=== PATIENT | female | born 1980 | race Caucasian/White ===

== ENCOUNTER 2017-01-08 08:35 | Inpatient (IN) | payer OTHER ==
[2017-01-08] MEDS ORDERED: MISOPROSTOL 200 MCG TAB ONE (09:06)
[2017-01-08] MEDS ORDERED: LIDOCAINE 1% 30 ML SDV ONE (09:06)
[2017-01-08] MEDS ORDERED: LR 1,000 ML IV PRN (09:09)
[2017-01-08] MEDS ORDERED: OXYTOCIN/RINGERS LACTATE 1,000 ML IV PRN (09:09)
[2017-01-08] MEDS ORDERED: TERBUTALINE SULFATE 1 MG/ML VIAL IV PRN (09:09)
[2017-01-08 09:19] LABS: % IMMATURE GRANULYOCYTES 0.4 % (0.0-1.1); ABSOLUTE IMMATURE GRANULOCYTES 0.07 10^3/uL (0.00-0.10); ADD DIFF? NO; ADD MORPH? NO; ADD SCAN? NO; ATYPICAL LYMPHOCYTE FLAG 0 (0-99); FRAGMENT RBC FLAG 0 (0-99); HEMATOCRIT 43.7 % (38.0-47.0); LEFT SHIFT FLG 0 (0-99); LIPEMIA HEMOLYSIS FLAG 90 (0-99); MEAN CELL HEMOGLOBIN 30.4 pg (27.9-34.1); MEAN CELL HEMOGLOBIN CONCENTR. 34.3 g/dL (32.4-36.7); MEAN CELL VOLUME 88.6 fL (81.5-99.8); MEAN PLATELET VOLUME 10.3 fL (8.7-11.7); PLATELET CLUMPS FLAG 10 (0-99); PLATELET COUNT 224 10^3/uL (150-400); RED BLOOD CELL COUNT 4.93 10^6/uL (4.18-5.33); RED CELL DISTRIBUTION WIDTH 13.2 % (11.5-15.2)
[2017-01-08] MEDS: IBUPROFEN 600 MG TAB PO PRN ×3 (11:01→23:44)
[2017-01-08] MEDS ORDERED: SIMETHICONE 80 MG TAB CHEW PO PRN (13:44)
[2017-01-08] MEDS ORDERED: HYDROCODONE/APAP 5/325 TAB PO PRN (13:44)
[2017-01-08] MEDS ORDERED: HYDROCORTISONE 0.5% CREAM TP PRN (13:44)
[2017-01-08] MEDS ORDERED: ACETAMINOPHEN 325 MG TAB PO PRN (13:44)
--- NOTE | 2017-01-08 13:49 | OBPROC ---
- Labor and Delivery Onset of Contractions Date: 01/07/17 Onset of Contractions Time: 21:30 Onset of Contractions Type: Spontaneous Rupture of Membranes Date: 01/08/17 Rupture of Membranes Time: 09:46 Rupture of Membranes Type: Artificial Amniotic Fluid Color: Clear Dilation Complete Time: 10:00 Placenta Delivery Date: 01/08/17 Placenta Delivery Time: 10:37 Episiotomy/Laceration: 1st Degree EBL: 100 Complications: None - Medications Labor Augmentation/Induction Meds Used: None - Info A Delivery Date: 01/08/17 Delivery Time: 10:32 Sex of : Male Weight (gm): 4558 kg Score (1 Min): 8 Score (5 Min): 9
[2017-01-08] MEDS: DOCUSATE SODIUM 100 MG CAP PO PRN (17:53)
[2017-01-08] MEDS ORDERED: LIDOCAINE 2% JELLY 5 ML TUBE ONE (18:42)
[2017-01-08] MEDS ORDERED: LIDOCAINE 2% JELLY 5 ML TUBE TP ONE (19:00)
[2017-01-09] MEDS: IBUPROFEN 600 MG TAB PO PRN ×3 (06:07→19:54)
[2017-01-10] MEDS: IBUPROFEN 600 MG TAB PO PRN ×4 (02:01→22:17)
[2017-01-10] MEDS: DOCUSATE SODIUM 100 MG CAP PO PRN ×2 (08:17→22:17)
--- NOTE | 2017-01-10 11:59 | SOAPPROG ---
SOAP Progress Note Assessment/Plan: Assessment: well pain well managed vs wnl ff@u scant rubra lochia Plan:discharge to [facility] early am anna green [address] dumas 01/10/17 11:55 Subjective: Feeling good other than not being able to void. well. Pain well managed Objective: Vital Signs Temp Pulse Resp BP Pulse Ox 37.1 C 71 18 109/75 94 01/10/17 08:00 01/10/17 08:00 01/10/17 08:00 01/10/17 08:00 01/10/17 08:00 Laboratory Results 01/08/17 09:00 01/09/17 01/10/17 01/11/17 05:59 05:59 05:59 Intake Total 1400 Output Total 100 3500 600 Balance -100 -2100 -600 - Time Spent With Patient Time Spent With Patient: 15 minutes - Pending Discharge Pending Discharge Within 24 Hours: Yes Pending Discharge Date: 01/11/17 Pending Discharge Time: 11:00 Physical Exam - Physical Exam General Appearance: WD/WN, alert Abdomen: other (ff@u) Pelvic Exam: vaginal bleeding (scant rubra lochia) Skin: normal color, warm/dry Extremities: normal range of motion, non-tender, normal inspection Neuro/Psych: no motor/sensory deficits, alert, normal mood/affect, oriented x 3 , other (headache will try tylenol and heat rest food and caffiene to assist . pt ok with poc) ICD10 Worksheet Patient Problems: Problems Problem Status Onset Active labor at term Acute Normal spontaneous vaginal delivery Acute hemorrhage Acute Retained placenta Acute
[2017-01-10 20:53] VITALS: RESP 16
[2017-01-11] MEDS: IBUPROFEN 600 MG TAB PO PRN ×2 (04:21→10:11)
[2017-01-11 09:26] VITALS: BP 118/74; PULSE 81; TEMP 98.9; O2SAT 94
--- NOTE | 2017-01-11 10:58 | OBPROG ---
OBG Progress Note Assessment/Plan: Assessment: 36 y/o PPD #3 s/p with macrosomic baby and urinary retention. Plan: After 24 hours of bladder rest she has a small post-void residual and will d/c home without the catheter. She will come to the office this week and check post void residual. Recommend Q 2 hour voids while awake even if she doesn't have the urge to void. 01/11/17 10:46 Subjective: Pt is doing better this am. She had her green removed this am and was able to void 600 cc with a post-void residual of 168 cc. She is comfortable and not having pain currently. Nursing is going well and baby is good. We will send patient home today and have a follow-up @ [facility] this week. Objective: 01/08/17 09:00 Patient ABO/Rh A POSITIVE 01/08/17 09:00 Temp Pulse Resp BP Pulse Ox 37.2 C 81 16 118/74 94 01/11/17 08:20 01/11/17 08:20 01/11/17 08:20 01/11/17 08:20 01/11/17 08:20 Uterine Position/Fundal Height: Umbilicus -2 Uterine Tone: Firm - Physical Exam General Appearance: WD/WN, alert, no apparent distress Neck: non-tender, full range of motion, supple Respiratory: chest non-tender, lungs clear, normal breath sounds Cardiac/Chest: regular rate, rhythm Abdomen: normal bowel sounds Extremities: swelling (no), Justin's sign (neg) ICD10 Worksheet Patient Problems: Problems Problem Status Onset Active labor at term Acute Normal spontaneous vaginal delivery Acute hemorrhage Acute Retained placenta Acute
== END 2017-01-11 11:55 | disposition home or self-care (01) | DRG 775 ==
LOC: FLD 08:35 → OBSVTOIN 09:10 → FOB 13:24
PROVIDERS: ADMIT Obstetrics & Gynecology; ATTEND Obstetrics & Gynecology
PROC: 10907ZC Drainage of Amniotic Fluid, Therapeutic from Products of Conception, Via Natural or Artificial Opening (ICD-10-PCS; principal; 2017-01-08)
PROC: 10E0XZZ Delivery of Products of Conception, External Approach (ICD-10-PCS; principal; 2017-01-08)
DX: O36.63X0 Maternal care for excessive fetal growth, third trimester, not applicable or unspecified (principal); O70.0 First degree perineal laceration during delivery; Z37.0 Single live birth; Z3A.39 39 weeks gestation of pregnancy; O09.523 Supervision of elderly multigravida, third trimester
CPT/HCPCS: J2590

== ENCOUNTER → 2019-03-02 | Outpatient (CLI) | payer OTHER | LOC: FIMAGING 02-03 08:20 | PROVIDERS: ATTEND Obstetrics & Gynecology | DX: Z12.31 Encounter for screening mammogram for malignant neoplasm of breast (principal) ==